=== PATIENT | male | born 1990 | race Caucasian/White ===

== ENCOUNTER 2017-12-09 09:02 | Inpatient (IN) | payer BC, OTHER ==
[~2017-12-09] VITALS: Ht 182.9 cm; Wt 70.8 kg
[2017-12-09] MEDS ORDERED: diphenhydrAMINE 50 MG CAPSULE PO PRN (17:00)
[2017-12-09] MEDS ORDERED: LOPERAMIDE HCL 2 MG CAPSULE PO PRN ×2 (17:00)
[2017-12-09] MEDS ORDERED: MIRALAX 17 GM POWD.PACK PO PRN (17:00)
[2017-12-09] MEDS ORDERED: LORAZEPAM 2 MG/1 ML VIAL IM PRN (17:00)
[2017-12-09] MEDS ORDERED: ONDANSETRON 4 MG/2 ML VIAL IM PRN (17:00)
[2017-12-09] MEDS ORDERED: THIAMINE HCL 200 MG/2 ML VIAL IM ONE (17:00)
[2017-12-09] MEDS ORDERED: NICOTINE POLACRILEX 4 MG GUM-PK OF TEN BC PRN (17:00)
[2017-12-09] MEDS ORDERED: ACETAMINOPHEN 325 MG TABLET PO PRN (17:00)
[2017-12-09] MEDS ORDERED: MAGNESIUM HYDROXIDE 30 ML LIQUID UDC PO PRN (17:00)
[2017-12-09] MEDS ORDERED: NICOTINE 14 MG/24HR PATCH TD PRN (17:00)
[2017-12-09] MEDS ORDERED: ONDANSETRON ODT 4 MG TAB.RAPDIS SL PRN (17:00)
[2017-12-09 17:07] VITALS: BP 134/84
[2017-12-09 18:10] LABS: BASOPHILS # (AUTO) 0.1 K/uL (0.0-8.0); BASOPHILS % (AUTO) 0.5 % (0.0-2.0); EOSINOPHILS % (AUTO) 0.2 % (0.0-7.0); LYMPHOCYTES # (AUTO) 4.9 K/uL (20.0-40.0); LYMPHOCYTES % (AUTO) 34.8 % (20.5-51.5); MEAN CORPUSCULAR HEMOGLOBIN 32.4 uug (23.8-33.4); MEAN CORPUSCULAR HGB CONC 35 g/dL (32.5-36.3); MEAN CORPUSCULAR VOLUME 93.3 fL (73.0-96.2); MONOCYTES # (AUTO) 0.7 K/uL (2.0-10.0); MONOCYTES % (AUTO) 5.2 % (0.0-11.0); NEUTROPHILS # (AUTO) 8.4 K/uL (1.8-8.9); NEUTROPHILS % (AUTO) 59.3 % (38.5-71.5); PLATELET COUNT (AUTO) 216 K/uL (152-348); RED BLOOD CELL COUNT(AUTO) 4.94 MIL/uL (4.06-5.63); WHITE BLOOD COUNT (AUTO) 14.1 K/uL (3.6-10.2)
[2017-12-09 18:16] LABS: ETHANOL < 3 MG/DL (0-0)
[2017-12-09 18:18] LABS: ALANINE AMINOTRANSFERASE 25 U/L (16-63); ALKALINE PHOSPHATASE 78 U/L (50-136); AMYLASE 78 U/L (25-115); ASPARTATE AMINOTRANSFERASE 17 U/L (15-37); BILIRUBIN,TOTAL 1.1 mg/dL (0.2-1.0); CARBON DIOXIDE 32 mmol/L (21-32); CHLORIDE 101 mmol/L (98-107); CREATININE 1.1 mg/dL (0.6-1.3); GLUCOSE 70 mg/dL (74-106); MAGNESIUM 2.2 mg/dL (1.8-2.4); POTASSIUM 3.7 mmol/L (3.5-5.1); TOTAL PROTEIN, SERUM 8.4 g/dL (6.4-8.2); UREA NITROGEN, BLOOD 11 mg/dL (7-18)
[2017-12-09 18:25] LABS: *AMPHETAMINE, URINE NEGATIVE (NEGATIVE); *BARBITURATE, URINE NEGATIVE (NEGATIVE); *CANNABINOID, URINE POSITIVE (NEGATIVE); *COCCAINE, URINE NEGATIVE (NEGATIVE); *OPIATE, URINE POSITIVE (NEGATIVE); *PHENCYCLIDINE SCREEN,URINE NEGATIVE (NEGATIVE)
[2017-12-09 20:00] VITALS: BP 138/77
[2017-12-09] MEDS: CLONIDINE HCL 0.1 MG TABLET PO PRN (20:45)
[2017-12-09] MEDS: GABAPENTIN 300 MG CAPSULE PO SCH (20:45)
[2017-12-09] MEDS: METHOCARBAMOL 750 MG TABLET PO PRN (20:46)
[2017-12-09] MEDS ORDERED: LORAZEPAM 1 MG TABLET PO SCH (21:00)
[2017-12-10 04:00] VITALS: BP 136/90
[2017-12-10] MEDS: MAG HYDROX/AL HYDROX/SIMETH 30 ML LIQUID UDC PO PRN ×2 (04:15→23:19)
[2017-12-10] MEDS: DICYCLOMINE HCL 20 MG TABLET PO PRN ×2 (04:15→16:12)
[2017-12-10] MEDS: LORAZEPAM 1 MG TABLET PO PRN ×4 (04:15→23:19)
[2017-12-10 08:00] VITALS: BP 131/71
[2017-12-10] MEDS: GABAPENTIN 300 MG CAPSULE PO SCH ×2 (08:41→20:59)
[2017-12-10] MEDS: LORAZEPAM 1 MG TABLET PO SCH ×3 (08:41→20:59)
[2017-12-10] MEDS: THIAMINE HCL 100 MG TABLET PO SCH (08:41)
[2017-12-10] MEDS: FOLIC ACID 1 MG TABLET PO SCH (08:42)
[2017-12-10] MEDS: MULTIVITAMINS,THERAPEUTIC TABLET PO SCH (08:42)
[2017-12-10] MEDS: BUPRENORPHINE HCL 2 MG TAB.SUBL SL SCH ×3 (09:00→21:00)
[2017-12-10] MEDS ORDERED: HYDROXYZINE PAMOATE 25 MG CAPSULE PO PRN (09:00)
[2017-12-10] MEDS ORDERED: TUBERCULIN,PURIF.PROT.DERIV. 5 TU/0.1 ML TEST ID ONE (09:00)
[2017-12-10 12:29] VITALS: BP 109/59
[2017-12-10] MEDS: METHOCARBAMOL 750 MG TABLET PO PRN ×2 (14:09→23:19)
[2017-12-10] MEDS: CLONIDINE HCL 0.1 MG TABLET PO PRN ×2 (14:09→20:59)
[2017-12-10] MEDS: IBUPROFEN 600 MG TABLET PO PRN ×2 (16:12→23:19)
[2017-12-10 16:14] VITALS: BP 134/86
[2017-12-10 20:00] VITALS: BP 120/84
[2017-12-11] VITALS: BP 113/65
[2017-12-11] MEDS: DICYCLOMINE HCL 20 MG TABLET PO PRN ×3 (00:55→16:50)
[2017-12-11] MEDS: LORAZEPAM 1 MG TABLET PO PRN (01:40)
[2017-12-11 04:00] VITALS: BP 111/69
[2017-12-11 07:44] LABS: BASOPHILS # (AUTO) 0.1 K/uL (0.0-8.0); BASOPHILS % (AUTO) 1.1 % (0.0-2.0); EOSINOPHILS # (AUTO) 0.1 K/uL (0.0-0.7); EOSINOPHILS % (AUTO) 0.6 % (0.0-7.0); HEMATOCRIT 42.5 % (36.7-47.1); HEMOGLOBIN 15.1 g/dL (12.5-16.3); LYMPHOCYTES % (AUTO) 40.7 % (20.5-51.5); MEAN CORPUSCULAR HEMOGLOBIN 32.8 uug (23.8-33.4); MEAN CORPUSCULAR HGB CONC 36 g/dL (32.5-36.3); MEAN CORPUSCULAR VOLUME 92.1 fL (73.0-96.2); MONOCYTES # (AUTO) 0.7 K/uL (2.0-10.0); MONOCYTES % (AUTO) 5.4 % (0.0-11.0); NEUTROPHILS # (AUTO) 6.5 K/uL (1.8-8.9); NEUTROPHILS % (AUTO) 52.2 % (38.5-71.5); PLATELET COUNT (AUTO) 188 K/uL (152-348); RED BLOOD CELL COUNT(AUTO) 4.61 MIL/uL (4.06-5.63); WHITE BLOOD COUNT (AUTO) 12.4 K/uL (3.6-10.2)
[2017-12-11 08:06] LABS: HEPATITIS B SURFACE AG Negative (Negative)
[2017-12-11 08:55] VITALS: BP 125/89
[2017-12-11] MEDS ORDERED: BUPRENORPHINE HCL 2 MG TAB.SUBL SL SCH (09:00)
[2017-12-11] MEDS ORDERED: LORAZEPAM 1 MG TABLET PO SCH ×2 (09:00→21:00)
[2017-12-11 09:16] LABS: CREATININE 1.1 mg/dL (0.6-1.3); MAGNESIUM 2.2 mg/dL (1.8-2.4); POTASSIUM 3.7 mmol/L (3.5-5.1)
[2017-12-11] MEDS: FOLIC ACID 1 MG TABLET PO SCH (09:17)
[2017-12-11] MEDS: METHOCARBAMOL 750 MG TABLET PO PRN ×2 (09:17→20:48)
[2017-12-11] MEDS: CLONIDINE HCL 0.1 MG TABLET PO PRN ×2 (09:17→16:50)
[2017-12-11] MEDS: GABAPENTIN 300 MG CAPSULE PO SCH ×3 (09:17→20:35)
[2017-12-11] MEDS: THIAMINE HCL 100 MG TABLET PO SCH (09:17)
[2017-12-11] MEDS: MULTIVITAMINS,THERAPEUTIC TABLET PO SCH (09:17)
[2017-12-11 09:30] LABS: THYROID STIMULATING HORMONE 0.456 mIU/mL (0.358-3.740)
[2017-12-11 12:40] VITALS: BP 109/64
[2017-12-11] MEDS: LORAZEPAM 1 MG TABLET PO SCH ×2 (13:03→16:49)
[2017-12-11] MEDS: KETOROLAC TROMETHAMINE 30 MG INJ IM PRN (14:16)
[2017-12-11] MEDS: BUPRENORPHINE HCL 2 MG TAB.SUBL SL SCH ×2 (15:00→20:42)
[2017-12-11 16:55] VITALS: BP 121/67
[2017-12-11 20:00] VITALS: BP 133/86
[2017-12-11] MEDS: CLONIDINE HCL 0.1 MG TABLET PO SCH (20:37)
[2017-12-11] MEDS: BACLOFEN 10 MG TABLET PO SCH (20:38)
[2017-12-11] MEDS: TRAZODONE 100 MG TABLET PO PRN (22:40)
[2017-12-12] VITALS: BP 119/79
[2017-12-12 04:00] VITALS: BP 125/74
[2017-12-12 08:00] VITALS: BP 109/62
[2017-12-12] MEDS ORDERED: LORAZEPAM 1 MG TABLET PO SCH ×3 (09:00→21:00)
[2017-12-12] MEDS: BUPRENORPHINE HCL 2 MG TAB.SUBL SL SCH ×3 (09:00→21:00)
[2017-12-12] MEDS: GABAPENTIN 300 MG CAPSULE PO SCH ×3 (09:37→21:14)
[2017-12-12] MEDS: BACLOFEN 10 MG TABLET PO SCH ×3 (09:37→21:15)
[2017-12-12] MEDS: CLONIDINE HCL 0.1 MG TABLET PO SCH ×2 (09:37→14:06)
[2017-12-12] MEDS: THIAMINE HCL 100 MG TABLET PO SCH (09:37)
[2017-12-12] MEDS: MULTIVITAMINS,THERAPEUTIC TABLET PO SCH (09:37)
[2017-12-12] MEDS: FOLIC ACID 1 MG TABLET PO SCH (09:38)
[2017-12-12 12:00] VITALS: BP 135/80
[2017-12-12 16:00] VITALS: BP 127/79
[2017-12-12] MEDS: KETOROLAC TROMETHAMINE 30 MG INJ IM PRN (17:16)
[2017-12-12] MEDS: METHOCARBAMOL 750 MG TABLET PO PRN (17:19)
[2017-12-12 20:00] VITALS: BP 146/76
[2017-12-12] MEDS: DICYCLOMINE HCL 20 MG TABLET PO PRN (21:13)
[2017-12-12] MEDS: CLONIDINE HCL 0.2 MG TABLET PO SCH (21:15)
[2017-12-12] MEDS: TRAZODONE 100 MG TABLET PO PRN (22:18)
[2017-12-13] MEDS: LORAZEPAM 1 MG TABLET PO SCH ×3 (08:25→20:42)
[2017-12-13] MEDS: GABAPENTIN 300 MG CAPSULE PO SCH ×3 (08:25→20:42)
[2017-12-13] MEDS: MULTIVITAMINS,THERAPEUTIC TABLET PO SCH (08:25)
[2017-12-13] MEDS: FOLIC ACID 1 MG TABLET PO SCH (08:26)
[2017-12-13] MEDS: CLONIDINE HCL 0.1 MG TABLET PO SCH ×2 (08:26→14:42)
[2017-12-13] MEDS: THIAMINE HCL 100 MG TABLET PO SCH (08:26)
[2017-12-13] MEDS: BACLOFEN 10 MG TABLET PO SCH ×3 (08:26→20:42)
[2017-12-13] MEDS: BUPRENORPHINE HCL 2 MG TAB.SUBL SL SCH ×2 (08:27→20:49)
[2017-12-13 08:30] VITALS: BP 120/80
[2017-12-13] MEDS ORDERED: LORAZEPAM 1 MG TABLET PO SCH (09:00)
[2017-12-13] MEDS ORDERED: QUETIAPINE FUMARATE 100 MG TABLET PO PRN (12:15)
[2017-12-13 12:32] VITALS: BP 119/70
[2017-12-13] MEDS: KETOROLAC TROMETHAMINE 30 MG INJ IM PRN (15:31)
[2017-12-13 16:56] VITALS: BP 108/70
[2017-12-13 20:00] VITALS: BP 121/85
[2017-12-13] MEDS: CLONIDINE HCL 0.2 MG TABLET PO SCH (20:41)
[2017-12-13] MEDS: METHOCARBAMOL 750 MG TABLET PO PRN (20:42)
[2017-12-14] VITALS: BP 110/65
[2017-12-14 04:00] VITALS: BP 118/78
[2017-12-14] MEDS ORDERED: LORAZEPAM 1 MG TABLET PO ONE (06:00)
[2017-12-14] MEDS: MULTIVITAMINS,THERAPEUTIC TABLET PO SCH (08:31)
[2017-12-14] MEDS: THIAMINE HCL 100 MG TABLET PO SCH (08:31)
[2017-12-14] MEDS: BACLOFEN 10 MG TABLET PO SCH ×3 (08:32→20:31)
[2017-12-14] MEDS: FOLIC ACID 1 MG TABLET PO SCH (08:32)
[2017-12-14] MEDS: GABAPENTIN 300 MG CAPSULE PO SCH ×3 (08:32→20:31)
[2017-12-14] MEDS: CLONIDINE HCL 0.1 MG TABLET PO SCH ×2 (08:32→14:17)
[2017-12-14] MEDS: KETOROLAC TROMETHAMINE 30 MG INJ IM PRN ×2 (08:39→21:43)
[2017-12-14] MEDS ORDERED: LORAZEPAM 1 MG TABLET PO SCH (09:00)
[2017-12-14] MEDS ORDERED: BUPRENORPHINE HCL 2 MG TAB.SUBL SL SCH (09:00)
[2017-12-14 09:05] VITALS: BP 130/76
[2017-12-14] MEDS ORDERED: diphenhydrAMINE 50 MG CAPSULE PO PRN (09:30)
[2017-12-14 12:19] VITALS: BP 135/62
[2017-12-14] MEDS ORDERED: METH-406 PO (12:48)
[2017-12-14] MEDS ORDERED: DICY20TA28 PO (12:48)
[2017-12-14] MEDS ORDERED: GABA-534 PO ×2 (12:48)
[2017-12-14] MEDS ORDERED: CLON0.1T14 PO (12:48)
[2017-12-14] MEDS ORDERED: DIPH50CA37 PO (12:48)
[2017-12-14] MEDS ORDERED: HYDR-3895 PO (12:48)
[2017-12-14] MEDS ORDERED: IBUP-1955 PO (12:48)
[2017-12-14] MEDS: DICYCLOMINE HCL 20 MG TABLET PO PRN (14:17)
[2017-12-14] MEDS: METHOCARBAMOL 750 MG TABLET PO PRN (14:17)
[2017-12-14 16:46] VITALS: BP 126/68
[2017-12-14 20:00] VITALS: BP 140/90
[2017-12-14] MEDS: CLONIDINE HCL 0.2 MG TABLET PO SCH (20:31)
[2017-12-15] VITALS: BP 117/63
[2017-12-15] MEDS: CLONIDINE HCL 0.1 MG TABLET PO SCH (08:23)
[2017-12-15] MEDS: FOLIC ACID 1 MG TABLET PO SCH (08:23)
[2017-12-15] MEDS: MULTIVITAMINS,THERAPEUTIC TABLET PO SCH (08:24)
[2017-12-15] MEDS: GABAPENTIN 300 MG CAPSULE PO SCH (08:24)
[2017-12-15] MEDS: THIAMINE HCL 100 MG TABLET PO SCH (08:24)
[2017-12-15] MEDS: BACLOFEN 10 MG TABLET PO SCH (08:25)
[2017-12-15 08:30] VITALS: BP 143/73
== END 2017-12-15 09:21 | disposition other institution (70) | DRG 895 ==
LOC: SRC 15:55
PROVIDERS: ADMIT Internal Medicine; ATTEND Internal Medicine
PROC: HZ2ZZZZ Detoxification Services for Substance Abuse Treatment (ICD-10-PCS; principal; 2017-12-09)
PROC: HZ41ZZZ Group Counseling for Substance Abuse Treatment, Behavioral (ICD-10-PCS; 2017-12-10)
DX: F10.230 Alcohol dependence with withdrawal, uncomplicated (principal); F13.20 Sedative, hypnotic or anxiolytic dependence, uncomplicated; R17 Unspecified jaundice; F31.9 Bipolar disorder, unspecified; F11.23 Opioid dependence with withdrawal; Y90.0 Blood alcohol level of less than 20 mg/100 ml; Z91.89 Other specified personal risk factors, not elsewhere classified; Z81.1 Family history of alcohol abuse and dependence; Z80.0 Family history of malignant neoplasm of digestive organs; Z80.42 Family history of malignant neoplasm of prostate; F17.210 Nicotine dependence, cigarettes, uncomplicated; F41.9 Anxiety disorder, unspecified; E07.81 Sick-euthyroid syndrome; F12.20 Cannabis dependence, uncomplicated; F14.10 Cocaine abuse, uncomplicated; F90.9 Attention-deficit hyperactivity disorder, unspecified type; Z82.0 Family history of epilepsy and other diseases of the nervous system; G47.00 Insomnia, unspecified; D72.823 Leukemoid reaction
CPT/HCPCS: 36415; 70030-TC; 80307; 80346; 80349; 80361; 83735; 84443; 85025; 86580; 86592; 86705; 86803; 87340; 87806; 93005; A4663; G0480; J1885; Q0163